=== PATIENT | female | born 1945 | race Caucasian/White ===

== ENCOUNTER 2017-10-07 12:36 | Inpatient (IN) | payer BC, MEDICARE, OTHER ==
[~2017-10-07] VITALS: Ht 149.9 cm; Wt 56.4 kg
[2017-10-07] MEDS ORDERED: SODIUM CHLORIDE 0.9% 1,000 ML IV ONE (13:13)
[2017-10-07 13:54] LABS: BASOPHILS % 0.6 % (0.0-2.0); EOSINOPHILS % 1.4 % (0.0-5.0); HEMATOCRIT. 24.7 % (36.0-48.0); HEMOGLOBIN. 8.9 g/dL (12.0-16.0); LYMPHOCYTES % 20.3 % (20.0-50.0); MEAN CORPUSCULAR HEMOGLOBIN 33.1 pg (28.0-32.0); MEAN CORPUSCULAR VOLUME 92.1 fL (81.0-99.0); MEAN PLATELET VOLUME 8.2 fl (7.4-10.4); MONOCYTES % 5.7 % (2.0-8.0); PLATELET 290 x1000/uL (130-400); RED BLOOD CELL COUNT 2.69 mill/uL (4.2-5.4); RED CELL DISTRIBUTION WIDTH 14.4 % (11.6-14.6)
[2017-10-07 13:59] LABS: CHLORIDE 83 mEq/L (98-107)
[2017-10-07 14:02] LABS: INR 1.3; PROTHROMBIN TIME 13.4 sec (9.4-11.6)
[2017-10-07] MEDS ORDERED: KCL 20MEQ/100ML PREMIX 100 ML IV ONE (14:30)
[2017-10-07] MEDS ORDERED: ASPIRIN 325MG EC TABLET PO ONE (15:30)
[2017-10-07] MEDS ORDERED: MAGNESIUM 2 G PREMIX 50 ML IV ONE (17:00)
[2017-10-07] MEDS: MAGNESIUM 1 G PREMIX 100 ML IV SCH ×4 (17:50→21:34)
[2017-10-07] MEDS ORDERED: POTASSIUM CHLORIDE INJ 30 MEQ in DEXT 5%/0.9% NACL 1,000 ML IV SCH (18:30)
[2017-10-07] MEDS ORDERED: IPRATROPIUM/ALBUTEROL 0.5-3(2.5)MG/3ML NEB INH PRN (19:30)
[2017-10-07] MEDS ORDERED: ONDANSETRON HCL 4MG/2ML VIAL IV PRN (19:30)
[2017-10-07] MEDS ORDERED: NA PHOS,M-B/NA PHOS,DI-BA ENEMA 118ML PR PRN (19:30)
[2017-10-07] MEDS ORDERED: ACETAMINOPHEN 650MG SUPP PR PRN (19:30)
[2017-10-07] MEDS ORDERED: ACETAMINOPHEN 325MG TABLET PO PRN (19:30)
[2017-10-07] MEDS ORDERED: DEXTROSE 50% WATER 50ML SYRINGE IV PRN (19:30)
[2017-10-07 19:42] LABS: HEMATOCRIT 26.1 % (36.0-48.0); HEMOGLOBIN 9.3 g/dL (12.0-16.0)
[2017-10-07] MEDS: KCL 20MEQ/100ML PREMIX 100 ML IV SCH ×2 (19:45→22:25)
[2017-10-07 20:00] VITALS: BP_SYST 108; BP_SYST 154; BP_SYST 160; BP_DIAS 55; BP_DIAS 57; BP_DIAS 64
[2017-10-07 20:05] LABS: AMMONIA 56 uMol/L (<32)
[2017-10-07] MEDS ORDERED: LACTULOSE 20G/30ML UDC PO SCH (20:15)
[2017-10-07 20:20] VITALS: BP 154/59
[2017-10-07] MEDS ORDERED: POTASSIUM CHLORIDE 20MEQ TABLET SR PO SCH (21:00)
[2017-10-07] MEDS: DEXT 5%/0.9% NACL KCL 20MEQ/L 1,000 ML IV SCH (21:07)
[2017-10-07] MEDS: BLOOD SUGAR DIAGNOSTIC STRIP TEST SCH (21:11)
[2017-10-07] MEDS: METRONIDAZOLE 500 MG PREMIX 100 ML IV SCH (21:11)
[2017-10-07 22:00] VITALS: BP 159/62
[2017-10-07] MEDS ORDERED: LEVOFLOXACIN 500MG PREMIX 100 ML IV SCH (22:00)
[2017-10-08] VITALS (13 sets, daily range): BP systolic 117–190; BP diastolic 44–91
[2017-10-08 00:27] LABS: CREATINE KINASE MB FRACTION 3.8 ng/mL (0.5-3.6)
[2017-10-08] MEDS: METRONIDAZOLE 500 MG PREMIX 100 ML IV SCH ×3 (05:14→21:37)
[2017-10-08] MEDS: DEXT 5%/0.9% NACL KCL 20MEQ/L 1,000 ML IV SCH ×2 (06:00→15:08)
[2017-10-08 07:17] LABS: HEPATITIS B SURFACE ANTIGEN NEGATIVE
[2017-10-08] MEDS: BLOOD SUGAR DIAGNOSTIC STRIP TEST SCH ×4 (07:30→21:51)
[2017-10-08 07:44] LABS: HEPATITIS B CORE AB IGM NEGATIVE
[2017-10-08 07:45] LABS: HEPATITIS A AB IGM NEGATIVE (NEGATIVE)
[2017-10-08 07:59] LABS: BASOPHILS % 0.3 % (0.0-2.0); EOSINOPHILS % 1.4 % (0.0-5.0); HEMATOCRIT. 24.5 % (36.0-48.0); HEMOGLOBIN. 8.7 g/dL (12.0-16.0); LYMPHOCYTES % 22.7 % (20.0-50.0); MEAN CORPUSCULAR HEMOGLOBIN 33.2 pg (28.0-32.0); MEAN CORPUSCULAR VOLUME 93.5 fL (81.0-99.0); MEAN PLATELET VOLUME 8.3 fl (7.4-10.4); NEUTROPHILS % 68.6 % (40.0-76.0); PLATELET 288 x1000/uL (130-400); RED BLOOD CELL COUNT 2.63 mill/uL (4.2-5.4); RED CELL DISTRIBUTION WIDTH 14.8 % (11.6-14.6)
[2017-10-08] MEDS ORDERED: LACTULOSE 20G/30ML UDC PO SCH ×2 (09:00→12:45)
[2017-10-08 10:18] LABS: CHLORIDE 91 mEq/L (98-107)
[2017-10-08 10:30] LABS: HDL CHOLESTEROL 10 mg/dL (40-59)
[2017-10-08 10:31] LABS: LDL CHOLESTEROL 53 mg/dL (5-100); T4 FREE 0.96 ng/dL (0.76-1.46)
[2017-10-08] MEDS: PANTOPRAZOLE SODIUM 40 MG/VIAL IV SCH (12:28)
[2017-10-08] MEDS: ASPIRIN 81MG TABLET PO SCH (12:29)
[2017-10-08] MEDS ORDERED: POTASSIUM CHLORIDE INJ 40 MEQ in DEXT 5% WATER 250 ML IV ONE (12:45)
[2017-10-08] MEDS ORDERED: POTASSIUM CHLORIDE 20MEQ TABLET SR PO SCH (12:45)
[2017-10-08] MEDS ORDERED: POTASSIUM CHLORIDE 20MEQ TABLET SR PO NR (14:53)
[2017-10-08] MEDS: KCL 20MEQ/100ML PREMIX 100 ML IV SCH ×2 (15:08→18:33)
[2017-10-08] MEDS: HYDRALAZINE 20MG/ML VIAL IV PRN (15:33)
[2017-10-08] MEDS: NEOMYCIN 500MG TABLET PO SCH (16:30)
[2017-10-08] MEDS: LEVOFLOXACIN 250MG PREMIX 50 ML IV SCH (22:11)
[2017-10-09] VITALS (11 sets, daily range): BP systolic 139–196; BP diastolic 59–87
[2017-10-09 00:32] LABS: BASOPHILS % 0.4 % (0.0-2.0); EOSINOPHILS % 0.7 % (0.0-5.0); HEMATOCRIT. 25.1 % (36.0-48.0); HEMOGLOBIN. 8.9 g/dL (12.0-16.0); LYMPHOCYTES % 20.3 % (20.0-50.0); MEAN CORPUSCULAR HEMOGLOBIN 33.6 pg (28.0-32.0); MEAN CORPUSCULAR VOLUME 94.9 fL (81.0-99.0); MEAN PLATELET VOLUME 8.3 fl (7.4-10.4); MONOCYTES % 7.1 % (2.0-8.0); NEUTROPHILS % 71.5 % (40.0-76.0); PLATELET 319 x1000/uL (130-400); RED BLOOD CELL COUNT 2.65 mill/uL (4.2-5.4); RED CELL DISTRIBUTION WIDTH 14.9 % (11.6-14.6)
[2017-10-09] MEDS: NEOMYCIN 500MG TABLET PO SCH ×5 (00:36→23:26)
[2017-10-09 00:39] LABS: AMMONIA 77 uMol/L (<32)
[2017-10-09] MEDS: METRONIDAZOLE 500 MG PREMIX 100 ML IV SCH ×3 (05:19→20:56)
[2017-10-09] MEDS: DEXT 5%/0.9% NACL KCL 20MEQ/L 1,000 ML IV SCH ×3 (05:26→21:12)
[2017-10-09 06:34] LABS: HEMATOCRIT 24.6 % (36.0-48.0); HEMOGLOBIN 8.7 g/dL (12.0-16.0); MEAN CORPUSCULAR HEMOGLOBIN 33.2 pg (28.0-32.0); MEAN CORPUSCULAR VOLUME 93.9 fL (81.0-99.0); PLATELET 288 x1000/uL (130-400); RED BLOOD CELL COUNT 2.62 mill/uL (4.2-5.4); RED CELL DISTRIBUTION WIDTH 15.2 % (11.6-14.6)
[2017-10-09] MEDS: BLOOD SUGAR DIAGNOSTIC STRIP TEST SCH ×4 (07:30→21:06)
[2017-10-09] MEDS: MAGNESIUM/ALUMINUM HYDROXIDE/SIMETHICONE 30ML UDC PO PRN ×2 (09:22→16:35)
[2017-10-09] MEDS: PANTOPRAZOLE SODIUM 40 MG/VIAL IV SCH (09:22)
[2017-10-09] MEDS: HYDROCODONE/ACETAMINOPHEN 5/325MG TABLET PO PRN ×2 (09:22→16:34)
[2017-10-09] MEDS: ASPIRIN 81MG TABLET PO SCH (09:23)
[2017-10-09] MEDS: RIFAXIMIN 550 MG TABLET PO SCH ×2 (13:42→21:11)
[2017-10-09] MEDS ORDERED: POTASSIUM CHLORIDE 20MEQ TABLET SR PO SCH (16:30)
[2017-10-09] MEDS ORDERED: CLONIDINE 0.1MG TABLET PO PRN (16:30)
[2017-10-09] MEDS ORDERED: SODIUM CHLORIDE 0.9% 1,000 ML IV ONE (16:30)
[2017-10-09] MEDS: CLONIDINE 0.2MG TABLET PO PRN ×2 (17:25→20:14)
[2017-10-09] MEDS: AMLODIPINE 2.5MG TABLET PO SCH (20:55)
[2017-10-09] MEDS: LEVOFLOXACIN 250MG PREMIX 50 ML IV SCH (21:13)
[2017-10-09 23:06] LABS: *AMPHETAMINES SCREEN URINE NEGATIVE (NEGATIVE); *BARBITURATES SCREEN URINE NEGATIVE (NEGATIVE); *BENZODIAZEPINES SCREEN URINE NEGATIVE (NEGATIVE); *COCAINE SCREEN URINE NEGATIVE (NEGATIVE); METHADONE URINE SCREEN NEGATIVE (NEGATIVE); OPIATES URINE SCREEN PRESUMTIVE POSITIVE (NEGATIVE)
[2017-10-09 23:07] LABS: CANNABINOID URINE SCREEN NEGATIVE (NEGATIVE); PHENCYCLIDINE URINE SCREEN NEGATIVE (NEGATIVE)
[2017-10-09] MEDS: HYDRALAZINE 20MG/ML VIAL IV PRN (23:23)
[2017-10-10] VITALS (13 sets, daily range): BP systolic 100–185; BP diastolic 41–99
[2017-10-10] MEDS: HYDROCODONE/ACETAMINOPHEN 5/325MG TABLET PO PRN ×2 (03:19→08:26)
[2017-10-10] MEDS: NEOMYCIN 500MG TABLET PO SCH ×3 (06:46→18:01)
[2017-10-10] MEDS: METRONIDAZOLE 500 MG PREMIX 100 ML IV SCH ×3 (06:47→20:40)
[2017-10-10] MEDS: BLOOD SUGAR DIAGNOSTIC STRIP TEST SCH ×4 (07:39→20:40)
[2017-10-10 08:02] LABS: BASOPHILS % 0.7 % (0.0-2.0); EOSINOPHILS % 2.1 % (0.0-5.0); HEMATOCRIT. 25.1 % (36.0-48.0); HEMOGLOBIN. 8.8 g/dL (12.0-16.0); LYMPHOCYTES % 24.6 % (20.0-50.0); MEAN CORPUSCULAR HEMOGLOBIN 33.8 pg (28.0-32.0); MEAN CORPUSCULAR VOLUME 96.1 fL (81.0-99.0); MEAN PLATELET VOLUME 8.4 fl (7.4-10.4); MONOCYTES % 6.1 % (2.0-8.0); NEUTROPHILS % 66.5 % (40.0-76.0); PLATELET 286 x1000/uL (130-400); RED BLOOD CELL COUNT 2.61 mill/uL (4.2-5.4); RED CELL DISTRIBUTION WIDTH 15.8 % (11.6-14.6)
[2017-10-10 08:09] LABS: CHLORIDE 102 mEq/L (98-107)
[2017-10-10 08:17] LABS: CREATINE KINASE 527 IU/L (26-192)
[2017-10-10 08:21] LABS: CREATINE KINASE MB FRACTION 3.5 ng/mL (0.5-3.6)
[2017-10-10] MEDS: PANTOPRAZOLE SODIUM 40 MG/VIAL IV SCH (08:26)
[2017-10-10] MEDS: ASPIRIN 81MG TABLET PO SCH (08:26)
[2017-10-10] MEDS: AMLODIPINE 2.5MG TABLET PO SCH ×2 (08:27→20:40)
[2017-10-10] MEDS: DEXT 5%/0.9% NACL KCL 20MEQ/L 1,000 ML IV SCH (08:27)
[2017-10-10] MEDS: RIFAXIMIN 550 MG TABLET PO SCH (08:27)
[2017-10-10] MEDS: MORPHINE SULFATE 4 MG/ML CPJ (NOT FOR IM USE) IV PRN ×3 (12:59→22:05)
[2017-10-10] MEDS ORDERED: HEPARIN SODIUM 1,000 UNIT/1ML VIAL IV ONE ×2 (13:40→13:44)
[2017-10-10] MEDS ORDERED: IODIXANOL 320MG/ML 100 ML BOTTLE IV ONE (14:04)
[2017-10-10] MEDS ORDERED: LIDOCAINE HCL 1% 20ML VIAL (Pyxis) INJ ONE (14:05)
[2017-10-10] MEDS ORDERED: MIDAZOLAM HCL 2 MG/2 ML VIAL ONE (14:40)
[2017-10-10] MEDS ORDERED: SODIUM CHLORIDE 0.45% 1,000 ML IV SCH (15:00)
[2017-10-10] MEDS ORDERED: MORPHINE SULFATE 2 MG/ML CPJ (NOT FOR IM USE) IV PRN (15:00)
[2017-10-10] MEDS ORDERED: ATROPINE SULFATE 1MG/10ML SYR IV PRN (15:00)
[2017-10-10 17:48] LABS: TOTAL IRON BINDING CAPACITY 279 ug/dL (250-450)
[2017-10-10] MEDS: CLONIDINE 0.2MG TABLET PO PRN (18:00)
[2017-10-10] MEDS: LACTULOSE 20G/30ML UDC PO SCH (18:00)
[2017-10-10 18:26] LABS: FOLIC ACID (FOLATE) SERUM 4.3 ng/mL (>5.38)
[2017-10-10 19:30] LABS: CLARITY URINE CLEAR (CLEAR); COLOR URINE DARK YELLOW (YELLOW); KETONES URINE NEGATIVE (NEGATIVE); LEUKOCYTE ESTERASE URINE TRACE (NEGATIVE); NITRITE URINE NEGATIVE (NEGATIVE); OCCULT BLOOD URINE 3+ (NEGATIVE); PH URINE 7.5 (4.5-8.0); PROTEIN URINE 1+ (NEGATIVE); SPECIFIC GRAVITY URINE 1.016 (1.005-1.030); UROBILINOGEN URINE 0.2 E.U./dL (0.2-1.0)
[2017-10-10] MEDS: LEVOFLOXACIN 250MG PREMIX 50 ML IV SCH (22:05)
[2017-10-10] MEDS: DIPHENHYDRAMINE 50MG/ML VIAL IV PRN (22:17)
[2017-10-11] VITALS (14 sets, daily range): BP systolic 91–167; BP diastolic 51–85
[2017-10-11] MEDS: NEOMYCIN 500MG TABLET PO SCH ×5 (00:23→23:41)
[2017-10-11] MEDS: HYDRALAZINE 20MG/ML VIAL IV PRN (02:22)
[2017-10-11] MEDS: DIPHENHYDRAMINE 50MG/ML VIAL IV PRN (02:22)
[2017-10-11] MEDS: METRONIDAZOLE 500 MG PREMIX 100 ML IV SCH ×3 (05:45→21:38)
[2017-10-11 06:59] LABS: BASOPHILS % 0.5 % (0.0-2.0); EOSINOPHILS % 3.1 % (0.0-5.0); HEMATOCRIT. 26.9 % (36.0-48.0); HEMOGLOBIN. 9.3 g/dL (12.0-16.0); LYMPHOCYTES % 27.6 % (20.0-50.0); MEAN CORPUSCULAR VOLUME 95.6 fL (81.0-99.0); MONOCYTES % 6.5 % (2.0-8.0); NEUTROPHILS % 62.3 % (40.0-76.0); PLATELET 322 x1000/uL (130-400); RED BLOOD CELL COUNT 2.82 mill/uL (4.2-5.4); RED CELL DISTRIBUTION WIDTH 15.7 % (11.6-14.6)
[2017-10-11] MEDS: BLOOD SUGAR DIAGNOSTIC STRIP TEST SCH ×4 (07:27→21:38)
[2017-10-11 07:30] LABS: CHLORIDE 101 mEq/L (98-107)
[2017-10-11 07:48] LABS: CREATINE KINASE 478 IU/L (26-192)
[2017-10-11 07:49] LABS: CREATINE KINASE MB FRACTION 3.9 ng/mL (0.5-3.6)
[2017-10-11 07:58] LABS: AMMONIA 74 uMol/L (<32)
[2017-10-11] MEDS: LACTULOSE 20G/30ML UDC PO SCH ×2 (08:09→17:42)
[2017-10-11] MEDS: PANTOPRAZOLE SODIUM 40 MG/VIAL IV SCH (08:09)
[2017-10-11] MEDS: AMLODIPINE 2.5MG TABLET PO SCH (08:09)
[2017-10-11] MEDS: ONDANSETRON HCL 4MG/2ML VIAL IV PRN ×3 (12:05→21:38)
[2017-10-11] MEDS ORDERED: SORBITOL 70% SOLN 30ML PO NR (13:45)
[2017-10-11] MEDS ORDERED: MAGNESIUM 2 G PREMIX 50 ML IV ONE (14:00)
[2017-10-11] MEDS: METOCLOPRAMIDE HCL 5MG TABLET PO SCH ×2 (14:40→17:42)
[2017-10-11] MEDS ORDERED: MAGNESIUM SULFATE 2 GM in DEXTROSE 5% WATER 50 ML IV SCH (15:00)
[2017-10-11] MEDS ORDERED: POTASSIUM CHLORIDE 20MEQ TABLET SR PO NR (15:30)
[2017-10-11] MEDS: METOCLOPRAMIDE HCL 10MG/2ML VIAL IV SCH ×2 (18:21→23:41)
[2017-10-11] MEDS: MORPHINE SULFATE 4 MG/ML CPJ (NOT FOR IM USE) IV PRN (19:15)
[2017-10-11] MEDS: AMLODIPINE 5MG TABLET PO SCH (21:37)
[2017-10-11] MEDS: LEVOFLOXACIN 250MG PREMIX 50 ML IV SCH (23:42)
[2017-10-12] VITALS (14 sets, daily range): BP systolic 139–192; BP diastolic 68–98
[2017-10-12] MEDS: MORPHINE SULFATE 4 MG/ML CPJ (NOT FOR IM USE) IV PRN (01:55)
[2017-10-12] MEDS: METRONIDAZOLE 500 MG PREMIX 100 ML IV SCH ×3 (04:59→20:57)
[2017-10-12] MEDS: METOCLOPRAMIDE HCL 10MG/2ML VIAL IV SCH (05:01)
[2017-10-12] MEDS: NEOMYCIN 500MG TABLET PO SCH ×3 (05:01→16:55)
[2017-10-12] MEDS: HYDRALAZINE 20MG/ML VIAL IV PRN ×3 (06:12→20:57)
[2017-10-12 06:14] LABS: AMMONIA 32 uMol/L (<32)
[2017-10-12 06:20] LABS: BASOPHILS % 0.3 % (0.0-2.0); EOSINOPHILS % 0.5 % (0.0-5.0); HEMATOCRIT. 28.9 % (36.0-48.0); HEMOGLOBIN. 9.9 g/dL (12.0-16.0); LYMPHOCYTES % 16.3 % (20.0-50.0); MEAN CORPUSCULAR HEMOGLOBIN 32.9 pg (28.0-32.0); MEAN CORPUSCULAR VOLUME 96.3 fL (81.0-99.0); MEAN PLATELET VOLUME 7.6 fl (7.4-10.4); MONOCYTES % 5.4 % (2.0-8.0); NEUTROPHILS % 77.5 % (40.0-76.0); PLATELET 352 x1000/uL (130-400); RED CELL DISTRIBUTION WIDTH 15.9 % (11.6-14.6)
[2017-10-12 06:42] LABS: CHLORIDE 100 mEq/L (98-107)
[2017-10-12] MEDS: BLOOD SUGAR DIAGNOSTIC STRIP TEST SCH ×4 (07:30→21:06)
[2017-10-12] MEDS ORDERED: POTASSIUM CHLORIDE 20MEQ/PACKET PO NR (09:00)
[2017-10-12] MEDS: AMLODIPINE 5MG TABLET PO SCH ×2 (09:00→21:00)
[2017-10-12] MEDS: LACTULOSE 20G/30ML UDC PO SCH (09:00)
[2017-10-12] MEDS ORDERED: FAMOTIDINE 20MG TABLET PO SCH (09:00)
[2017-10-12] MEDS: ONDANSETRON HCL 4MG/2ML VIAL IV PRN (09:05)
[2017-10-12 10:23] LABS: BASOPHILS % 0.4 % (0.0-2.0); EOSINOPHILS % 0.2 % (0.0-5.0); HEMATOCRIT. 28.1 % (36.0-48.0); HEMOGLOBIN. 9.9 g/dL (12.0-16.0); LYMPHOCYTES % 11.6 % (20.0-50.0); MEAN CORPUSCULAR HEMOGLOBIN 33.7 pg (28.0-32.0); MEAN CORPUSCULAR VOLUME 95.7 fL (81.0-99.0); MEAN PLATELET VOLUME 7.7 fl (7.4-10.4); MONOCYTES % 4.2 % (2.0-8.0); NEUTROPHILS % 83.6 % (40.0-76.0); PLATELET 353 x1000/uL (130-400); RED BLOOD CELL COUNT 2.94 mill/uL (4.2-5.4)
[2017-10-12] MEDS: FAMOTIDINE 20MG/2ML VIAL IV SCH (12:33)
[2017-10-12] MEDS: DEXT 5%/0.45% NACL KCL 20MEQ/L 1,000 ML IV SCH (17:44)
[2017-10-12] MEDS: LEVOFLOXACIN 250MG PREMIX 50 ML IV SCH (21:06)
[2017-10-13] VITALS (15 sets, daily range): BP systolic 142–218; BP diastolic 70–117
[2017-10-13] MEDS ORDERED: HYDRALAZINE 20MG/ML VIAL IV SCH (00:13)
[2017-10-13] MEDS: ONDANSETRON HCL 4MG/2ML VIAL IV PRN ×3 (00:15→21:59)
[2017-10-13] MEDS: MORPHINE SULFATE 4 MG/ML CPJ (NOT FOR IM USE) IV PRN ×4 (05:22→21:59)
[2017-10-13] MEDS: METRONIDAZOLE 500 MG PREMIX 100 ML IV SCH ×3 (05:23→21:39)
[2017-10-13] MEDS: NEOMYCIN 500MG TABLET PO SCH ×4 (05:28→17:46)
[2017-10-13] MEDS: HYDRALAZINE 20MG/ML VIAL IV PRN ×4 (06:37→21:57)
[2017-10-13 07:05] LABS: HEMATOCRIT 26.4 % (36.0-48.0); HEMOGLOBIN 9.3 g/dL (12.0-16.0); MEAN CORPUSCULAR HEMOGLOBIN 33.6 pg (28.0-32.0); MEAN CORPUSCULAR VOLUME 95.6 fL (81.0-99.0); PLATELET 315 x1000/uL (130-400); RED BLOOD CELL COUNT 2.76 mill/uL (4.2-5.4)
[2017-10-13 08:04] LABS: CHLORIDE 99 mEq/L (98-107)
[2017-10-13] MEDS: AMLODIPINE 5MG TABLET PO SCH ×2 (09:00→21:44)
[2017-10-13] MEDS ORDERED: HYDRALAZINE 20MG/ML VIAL ONE (11:34)
[2017-10-13] MEDS: FAMOTIDINE 20MG/2ML VIAL IV SCH (11:37)
[2017-10-13] MEDS ORDERED: POTASSIUM CHLORIDE INJ 40 MEQ in DEXT 5% WATER 250 ML IV ONE (12:00)
[2017-10-13] MEDS: BLOOD SUGAR DIAGNOSTIC STRIP TEST SCH ×2 (12:50→17:47)
[2017-10-13] MEDS ORDERED: DIATR MEGLU/DIATRIZOATE SOLN 120ML ONE (13:35)
[2017-10-13] MEDS: KCL 20MEQ/100ML PREMIX 100 ML IV SCH ×2 (15:43→16:55)
[2017-10-13] MEDS: DEXT 5%/0.45% NACL KCL 20MEQ/L 1,000 ML IV SCH ×2 (18:25→22:45)
[2017-10-13] MEDS: LEVOFLOXACIN 250MG PREMIX 50 ML IV SCH (21:39)
[2017-10-14] VITALS (12 sets, daily range): BP systolic 131–190; BP diastolic 50–96
[2017-10-14] MEDS: BLOOD SUGAR DIAGNOSTIC STRIP TEST SCH ×5 (00:46→22:42)
[2017-10-14] MEDS: METRONIDAZOLE 500 MG PREMIX 100 ML IV SCH ×3 (06:00→22:31)
[2017-10-14] MEDS: NEOMYCIN 500MG TABLET PO SCH ×6 (06:00→22:42)
[2017-10-14 06:12] LABS: HEMATOCRIT 27.6 % (36.0-48.0); HEMOGLOBIN 9.4 g/dL (12.0-16.0); MEAN CORPUSCULAR VOLUME 97.3 fL (81.0-99.0); PLATELET 338 x1000/uL (130-400); RED BLOOD CELL COUNT 2.84 mill/uL (4.2-5.4); RED CELL DISTRIBUTION WIDTH 16.5 % (11.6-14.6)
[2017-10-14] MEDS: ONDANSETRON HCL 4MG/2ML VIAL IV PRN ×4 (07:07→22:30)
[2017-10-14] MEDS: AMLODIPINE 5MG TABLET PO SCH ×2 (09:00→21:00)
[2017-10-14] MEDS: DEXT 5%/0.45% NACL KCL 20MEQ/L 1,000 ML IV SCH ×2 (09:08→22:31)
[2017-10-14] MEDS: FAMOTIDINE 20MG/2ML VIAL IV SCH (09:09)
[2017-10-14] MEDS: LEVOFLOXACIN 250MG PREMIX 50 ML IV SCH (22:31)
[2017-10-15] VITALS (11 sets, daily range): BP systolic 116–139; BP diastolic 67–94
[2017-10-15] MEDS: DEXT 5%/0.45% NACL KCL 20MEQ/L 1,000 ML IV SCH ×2 (03:18→11:41)
[2017-10-15] MEDS: ONDANSETRON HCL 4MG/2ML VIAL IV PRN ×2 (03:18→08:13)
[2017-10-15] MEDS: NEOMYCIN 500MG TABLET PO SCH ×2 (03:19→12:00)
[2017-10-15] MEDS: BLOOD SUGAR DIAGNOSTIC STRIP TEST SCH ×3 (06:18→18:14)
[2017-10-15] MEDS: AMLODIPINE 5MG TABLET PO SCH ×2 (09:00→21:00)
[2017-10-15 09:11] LABS: HEMATOCRIT 28.8 % (36.0-48.0); HEMOGLOBIN 9.9 g/dL (12.0-16.0); MEAN CORPUSCULAR HEMOGLOBIN 33.7 pg (28.0-32.0); MEAN CORPUSCULAR VOLUME 98.1 fL (81.0-99.0); PLATELET 323 x1000/uL (130-400); RED BLOOD CELL COUNT 2.93 mill/uL (4.2-5.4); RED CELL DISTRIBUTION WIDTH 16.6 % (11.6-14.6)
[2017-10-15] MEDS: FAMOTIDINE 20MG/2ML VIAL IV SCH (09:11)
[2017-10-15 11:19] LABS: CHLORIDE 102 mEq/L (98-107)
[2017-10-15] MEDS: ACETAMINOPHEN 325MG TABLET PO PRN (13:15)
[2017-10-16] VITALS (12 sets, daily range): BP systolic 96–138; BP diastolic 50–96
[2017-10-16] MEDS: DEXT 5%/0.45% NACL KCL 20MEQ/L 1,000 ML IV SCH ×3 (00:20→21:37)
[2017-10-16] MEDS: BLOOD SUGAR DIAGNOSTIC STRIP TEST SCH ×4 (00:20→17:48)
[2017-10-16] MEDS: ACETAMINOPHEN 325MG TABLET PO PRN ×2 (00:21→15:59)
[2017-10-16] MEDS: DIPHENHYDRAMINE 50MG/ML VIAL IV PRN ×2 (01:36→21:38)
[2017-10-16 06:33] LABS: BASOPHILS % 0.2 % (0.0-2.0); EOSINOPHILS % 0.8 % (0.0-5.0); HEMATOCRIT. 31.3 % (36.0-48.0); HEMOGLOBIN. 10.6 g/dL (12.0-16.0); LYMPHOCYTES % 20.3 % (20.0-50.0); MEAN CORPUSCULAR HEMOGLOBIN 32.9 pg (28.0-32.0); MEAN CORPUSCULAR VOLUME 97.2 fL (81.0-99.0); MONOCYTES % 8.3 % (2.0-8.0); NEUTROPHILS % 70.4 % (40.0-76.0); PLATELET 354 x1000/uL (130-400); RED BLOOD CELL COUNT 3.22 mill/uL (4.2-5.4); RED CELL DISTRIBUTION WIDTH 16.5 % (11.6-14.6)
[2017-10-16 06:36] LABS: AMMONIA 62 uMol/L (<32)
[2017-10-16 06:50] LABS: CHLORIDE 97 mEq/L (98-107)
[2017-10-16] MEDS: ONDANSETRON HCL 4MG/2ML VIAL IV PRN (06:54)
[2017-10-16] MEDS: NEBIVOLOL HCL 5 MG TABLET NG SCH (08:27)
[2017-10-16] MEDS: FAMOTIDINE 20MG/2ML VIAL IV SCH (08:27)
[2017-10-16] MEDS: AMLODIPINE 5MG TABLET PO SCH ×2 (08:30→21:00)
[2017-10-16] MEDS ORDERED: LACTULOSE 300 ML in WATER FOR INJECTION,STERILE 700 ML PR SCH (15:00)
[2017-10-17] VITALS (12 sets, daily range): BP systolic 98–128; BP diastolic 47–87
[2017-10-17] MEDS: BLOOD SUGAR DIAGNOSTIC STRIP TEST SCH ×5 (06:30→23:47)
[2017-10-17] MEDS: DEXT 5%/0.45% NACL KCL 20MEQ/L 1,000 ML IV SCH (06:30)
[2017-10-17 07:24] LABS: AMMONIA 31 uMol/L (<32)
[2017-10-17 07:29] LABS: HEMATOCRIT 29.5 % (36.0-48.0); HEMOGLOBIN 10.2 g/dL (12.0-16.0); MEAN CORPUSCULAR HEMOGLOBIN 34.3 pg (28.0-32.0); MEAN CORPUSCULAR VOLUME 99.1 fL (81.0-99.0); PLATELET 315 x1000/uL (130-400); RED BLOOD CELL COUNT 2.98 mill/uL (4.2-5.4); RED CELL DISTRIBUTION WIDTH 16.6 % (11.6-14.6)
[2017-10-17] MEDS: ACETAMINOPHEN 325MG TABLET PO PRN (08:47)
[2017-10-17] MEDS: NEBIVOLOL HCL 5 MG TABLET NG SCH (08:52)
[2017-10-17] MEDS: AMLODIPINE 5MG TABLET PO SCH ×2 (08:52→21:00)
[2017-10-17] MEDS: FAMOTIDINE 20MG/2ML VIAL IV SCH (09:01)
[2017-10-17] MEDS ORDERED: DEXT 5%/0.9% NACL 1,000 ML IV SCH (14:15)
[2017-10-18] VITALS (11 sets, daily range): BP systolic 107–137; BP diastolic 52–87
[2017-10-18] MEDS: BLOOD SUGAR DIAGNOSTIC STRIP TEST SCH ×3 (06:38→18:15)
[2017-10-18 06:58] LABS: HEMATOCRIT 28.4 % (36.0-48.0); HEMOGLOBIN 9.8 g/dL (12.0-16.0); MEAN CORPUSCULAR VOLUME 98.4 fL (81.0-99.0); PLATELET 298 x1000/uL (130-400); RED BLOOD CELL COUNT 2.89 mill/uL (4.2-5.4); RED CELL DISTRIBUTION WIDTH 16.5 % (11.6-14.6)
[2017-10-18 07:01] LABS: CHLORIDE 105 mEq/L (98-107)
[2017-10-18] MEDS: FAMOTIDINE 20MG/2ML VIAL IV SCH (08:12)
[2017-10-18] MEDS: AMLODIPINE 5MG TABLET PO SCH (08:13)
[2017-10-18] MEDS: NEBIVOLOL HCL 5 MG TABLET NG SCH (08:14)
== END 2017-10-18 19:30 | DRG 280 ==
LOC: ER 12:48 → EDBEDREQTM 16:27 → EDBEDREQ 16:27 → EDBEDREQSVC 16:27 → ENRESERV 16:52 → SUPCPDRO 17:02 → 5EST 18:17
PROVIDERS: ADMIT Internal Medicine; ATTEND Internal Medicine
PROC: B2111ZZ Fluoroscopy of Multiple Coronary Arteries using Low Osmolar Contrast (ICD-10-PCS; 2017-10-10)
PROC: 4A023N7 Measurement of Cardiac Sampling and Pressure, Left Heart, Percutaneous Approach (ICD-10-PCS; principal; 2017-10-10 14:00)
DX: I21.4 Non-ST elevation (NSTEMI) myocardial infarction (principal); I50.33 Acute on chronic diastolic (congestive) heart failure; G93.40 Encephalopathy, unspecified; K56.609 Unspecified intestinal obstruction, unspecified as to partial versus complete obstruction; N17.9 Acute kidney failure, unspecified; K56.7 Ileus, unspecified; E87.1 Hypo-osmolality and hyponatremia; E72.20 Disorder of urea cycle metabolism, unspecified; E87.6 Hypokalemia; E83.42 Hypomagnesemia; I10 Essential (primary) hypertension; E11.9 Type 2 diabetes mellitus without complications; E03.9 Hypothyroidism, unspecified; K52.9 Noninfective gastroenteritis and colitis, unspecified; K74.60 Unspecified cirrhosis of liver; R00.1 Bradycardia, unspecified; G90.8 Other disorders of autonomic nervous system; R33.9 Retention of urine, unspecified; F41.9 Anxiety disorder, unspecified; D64.9 Anemia, unspecified; E86.0 Dehydration; E87.5 Hyperkalemia; I11.0 Hypertensive heart disease with heart failure; I95.1 Orthostatic hypotension; I44.0 Atrioventricular block, first degree; W18.39XA Other fall on same level, initial encounter; Y93.89 Activity, other specified; Y92.89 Other specified places as the place of occurrence of the external cause; Y99.8 Other external cause status; Z90.49 Acquired absence of other specified parts of digestive tract
CPT/HCPCS: 36415; 70450; 71045; 74018; 74176; 74250; 76770; 80048; 80053; 80061; 80076; 80305; 81003; 82140; 82550; 82553; 82607; 82746; 82962; 83036; 83540; 83550; 83690; 83735; 83880; 84132; 84439; 84443; 84484; 85014; 85018; 85025; 85027; 85044; 85379; 85610; 86705; 86709; 86803; 86850; 86900; 87015; 87040; 87045; 87086; 87340; 87427; 87449; 87493; 93005; 93306; 93458; 93970; 96360; 96361; 97162; 97530; 99291; A6261; C1769; C1887; C1893; C9113; J0360; J1200; J1644; J1956; J2250; J2270; J2405; J2765; J3475; J3480; J3490; J7030; J7040; J7042; J7060; J8597; Q9963; Q9967; A4315